=== PATIENT | female | born 1940 | race Caucasian/White ===

== ENCOUNTER 2021-06-25 14:53 | Emergency (ER) | payer BC, OTHER ==
[~2021-06-25] VITALS: Ht 149.9 cm; Wt 81.6 kg
--- NOTE | 2021-06-25 14:55 | NUR ---
RECEIVED PT 80 yrs female c/o palpation with chest pressure on and of for 3 days hx YENNIFER HIN awake and alert no so skin warm and day to touch
[2021-06-25 15:16] LABS: HEMATOCRIT 40.8 % (31.2-41.9); MEAN CORPUSCULAR HEMOGLOBIN 31.7 uug (24.7-32.8); MEAN CORPUSCULAR VOLUME 93.7 fL (75.5-95.3); PLATELET COUNT (AUTO) 246 K/uL (179-408)
[2021-06-25 15:25] LABS: CARBON DIOXIDE 25 mmol/L (21-32); CHLORIDE 106 mmol/L (98-107); CREATININE 1.1 mg/dL (0.6-1.3); GLUCOSE 128 mg/dL (74-106); POTASSIUM 4.1 mmol/L (3.5-5.1); UREA NITROGEN, BLOOD 24 mg/dL (7-18)
[2021-06-25] MEDS ORDERED: ALEN70TA80 PO (15:27)
[2021-06-25] MEDS ORDERED: DILT-3 PO (15:27)
[2021-06-25] MEDS ORDERED: FLUT1DIS27 INH (15:27)
[2021-06-25] MEDS ORDERED: LOSA50TA39 PO (15:27)
[2021-06-25] MEDS ORDERED: CYAN-51 PO (15:27)
[2021-06-25] MEDS ORDERED: LORA-258 PO (15:27)
[2021-06-25] MEDS ORDERED: METO-356 PO (15:27)
[2021-06-25] MEDS ORDERED: VOLTAREN GEL TP (15:27)
[2021-06-25] MEDS ORDERED: ALBU6.7H9 INH (15:27)
[2021-06-25] MEDS ORDERED: ATOR10TA PO (15:27)
[2021-06-25] MEDS ORDERED: SITA100T PO (15:27)
[2021-06-25] MEDS ORDERED: APIX5TAB4 PO (15:27)
[2021-06-25] MEDS ORDERED: PANT40TA49 PO (15:27)
[2021-06-25] MEDS ORDERED: CHOL200059 PEG (15:27)
[2021-06-25 15:43] LABS: ALANINE AMINOTRANSFERASE 23 U/L (14-59); ALKALINE PHOSPHATASE 73 U/L (50-136); ASPARTATE AMINOTRANSFERASE 25 U/L (15-37); BILIRUBIN,DIRECT 0.2 mg/dL (0.0-0.2); BILIRUBIN,TOTAL 0.5 mg/dL (0.2-1.0); TOTAL PROTEIN, SERUM 7.5 g/dL (6.4-8.2)
--- NOTE | 2021-06-25 17:00 | NUR ---
dineses chest pain or sob blood drow and sent to lab
[2021-06-25] MEDS ORDERED: FUROSEMIDE 20 MG/2 ML VIAL IV ONE (17:30)
--- NOTE | 2021-06-25 17:30 | NUR ---
covid swab sent to lab
[2021-06-25] MEDS ORDERED: FUROSEMIDE 20 MG/2 ML VIAL ONE (17:48)
--- NOTE | 2021-06-25 18:30 | NUR ---
plan to sent pt WAGNER GONZALES FOR ROOM
[2021-06-25 18:49] LABS: *AMPHETAMINE, URINE NEGATIVE (NEGATIVE); *CANNABINOID, URINE NEGATIVE (NEGATIVE); *COCCAINE, URINE NEGATIVE (NEGATIVE); *OPIATE, URINE NEGATIVE (NEGATIVE); *PHENCYCLIDINE SCREEN,URINE NEGATIVE (NEGATIVE)
--- NOTE | 2021-06-25 19:30 | NUR ---
HAND OFF TAMI STOKES NO SOB OR CHEST PAIN
--- NOTE | 2021-06-25 19:32 | NUR ---
RECEIVED REPORT FROM [facility], REGISTRY. PT NOTED TO BE IN BED, RESTING COMFORTABLY. DENIES ANY CP/PRESSURE, NO PALPITATIONS.
--- NOTE | 2021-06-25 21:16 | NUR ---
ASSITED PT TO AMBULATE TO RESTROOM, STEADY GAIT.
--- NOTE | 2021-06-25 22:54 | NUR ---
PT AWAKE AND A/O X4, DENIES ANY PAIN/PALPITATION. NOTED TO BE USING HER CELL PHONE. ALL NEEDS ARE MET AND ATTENDED AT THIS TIME.
--- NOTE | 2021-06-25 23:17 | NUR ---
LACEY FROM [facility] CALLED. PT ACCEPTED TO [facility] GOING TO [address] [place] [address] ROOM [facility]. REPORT # [phone] LACEY CALL BACK # [phone].
--- NOTE | 2021-06-25 23:57 | NUR ---
GAVE REPORT TO ILIR VALENTIN IN [facility]. SET UP AMBULANCE TRANSPORTATION WITH [facility] SPOKE WITH [facility] PROVIDED ME WITH ETA OF 20-30 MINS. LACEY FROM [facility] MADE AWARE.
--- NOTE | 2021-06-26 00:20 | NUR ---
[facility] [address] AT BEDSIDE TO TAKE PT TO [facility]. PT IS STABLE, DENIES ANY PAIN/DISCOMFORT. NO CP/PRESSURE.
--- NOTE | 2021-06-26 00:27 | NUR ---
Patient Tranfers to outside Facility Physician: Murray [place] Location: [facility], [address] [place] [address] Room 3250.
== END 2021-06-26 00:32 | disposition short-term general hospital (02) ==
LOC: ER 14:53
DX: I48.91 Unspecified atrial fibrillation (principal); R07.9 Chest pain, unspecified; I11.0 Hypertensive heart disease with heart failure; I50.9 Heart failure, unspecified; E11.9 Type 2 diabetes mellitus without complications; Z79.01 Long term (current) use of anticoagulants; Z79.84 Long term (current) use of oral hypoglycemic drugs; F41.9 Anxiety disorder, unspecified; Z79.899 Other long term (current) drug therapy; K29.70 Gastritis, unspecified, without bleeding; I25.10 Atherosclerotic heart disease of native coronary artery without angina pectoris; Z95.2 Presence of prosthetic heart valve; Z20.822 Contact with and (suspected) exposure to COVID-19
CPT/HCPCS: 36415; 71045; 80048; 80076; 80307; 83880; 84484; 85025; 87426; 93005; 96374; 99285; J1940; 70030-TC; A4663